=== PATIENT | female | born 1985 | race African-American/Black ===

== ENCOUNTER 2021-08-03 11:17 | Emergency (ER) | payer SELFPAY ==
[~2021-08-03] VITALS: Ht 172.7 cm; Wt 80.0 kg
[2021-08-03 18:00] VITALS: BP 98/60
== END 2021-08-03 21:03 ==
LOC: ER 11:17
DX: R55 Syncope and collapse (principal); F43.20 Adjustment disorder, unspecified; R73.9 Hyperglycemia, unspecified; Z68.26 Body mass index [BMI] 26.0-26.9, adult
CPT/HCPCS: 82962; 93005; 99283